=== PATIENT | female | born 1995 | race African-American/Black ===

== ENCOUNTER 2025-05-11 12:51 | Emergency (ER) | payer OTHER ==
[~2025-05-11] VITALS: Ht 172.7 cm; Wt 68.0 kg
[2025-05-11 13:00] VITALS: O2SAT 100
[2025-05-11 16:06] VITALS: BP 121/82; PULSE 80; RESP 16; TEMP 36.9; O2SAT 100
[2025-05-11 16:40] LABS: INFLUENZA TYPE A Presumptive Negative (Pres. Neg.)
[2025-05-11 16:41] LABS: INFLUENZA TYPE B Presumptive Negative (Pres. Neg.)
== END 2025-05-11 16:10 | disposition home or self-care (01) ==
LOC: ER 12:51
DX: B34.9 Viral infection, unspecified (principal); J45.909 Unspecified asthma, uncomplicated; Z20.822 Contact with and (suspected) exposure to COVID-19
CPT/HCPCS: 87070; 87426; 87430; 87804; 99283